=== PATIENT | male | born 1955 | race Caucasian/White ===

== ENCOUNTER → 2022-01-04 07:39 | Outpatient (CLI) | payer OTHER, SELFPAY ==
--- NOTE | 2022-01-04 | DI.US.S_ITS ---
PROCEDURE: US ABDOMEN LIMITED INDICATIONS: Right upper quadrant pain TECHNIQUE: Real-time focused scanning was performed of the abdomen, with image documentation. COMPARISON: None. FINDINGS: The liver demonstrates enlarged size. The liver demonstrates generalized moderately increased echogenicity. This decreases ultrasound sensitivity for detection of hepatic masses. Focal fatty sparing can be seen adjacent to the gallbladder. The gallbladder is prominent in size and is full of stones/gravel. The gallbladder wall is not thickened, measuring 3 mm or less. No specific pericholecystic fluid is seen. The sonographic Fuentes sign is negative. There is no biliary dilatation, the common bile duct measures 6 mm. No significant pancreatic abnormality is seen on these images. IMPRESSION: Abnormal gallbladder, with numerous stones/gravel. The gallbladder itself appears enlarged. No additional sonographic signs of cholecystitis are seen. - Please consider surgical consultation. No biliary dilatation. - Enlarged, fatty liver. Dictated by: Vinny Dhaliwal M.D. on 01/04/2022 at 12:46 Approved by: Vinny Dhaliwal M.D. on 01/04/2022 at 12:48
== END ==
PROVIDERS: PCP Internal Medicine; Referring Provider Internal Medicine; Visit Provider Internal Medicine
DX: R10.11 Right upper quadrant pain (principal); K80.80 Other cholelithiasis without obstruction; K76.0 Fatty (change of) liver, not elsewhere classified
CPT/HCPCS: 76705

== ENCOUNTER → 2022-05-01 11:32 | Outpatient (CLI) | payer OTHER, SELFPAY | PROVIDERS: Visit Provider Nurse Practitioner Family | DX: R30.0 Dysuria (principal) | CPT/HCPCS: 87086 ==

== ENCOUNTER 2022-05-01 12:04 | Emergency (ER) | payer OTHER, SELFPAY ==
[2022-05-01] VITALS (54 sets, daily range): BP systolic 104–169; BP diastolic 57–81; PULSE 64–79; RESP 18; O2SAT 92–99; BMI 29.5
--- NOTE | 2022-05-01 13:57 | DI.CT.S_ITS ---
PROCEDURE: CT ABDOMEN PELVIS W CON INDICATIONS: rectal abscess/prostatitis, urinary obstruction w/ rt flank TECHNIQUE: After the administration of IV contrast, axial sections were acquired from the lung bases to the pubic symphysis. Coronal and sagittal reformats were performed. For radiation dose reduction, the following was used: automated exposure control, adjustment of mA and/or kV according to patient size. COMPARISON: None. FINDINGS: Image quality: Excellent. Lung bases: Unremarkable. Heart: Coronary artery calcification. ABDOMEN: Liver: Hepatomegaly. Several punctate and short amorphous calcifications along the posterior caudal aspect of the liver. Moderate inflammatory haziness in the fat of the gallbladder fossa. Gallbladder: Gallbladder is surgically absent. Biliary ducts: Not well seen. Pancreas: Normal. Spleen: Normal size. Adrenal Glands: Mild bilateral symmetric thickening. No nodules. Kidneys and Ureters: Moderate bilateral and symmetric perinephric fat stranding. Symmetric enhancement. Two small cortical cystic lesions in the right kidney. No hydronephrosis or nephrolithiasis. No hydroureter or ureteral calcifications seen. Stomach and Bowel: There is wall thickening of much of the sigmoid colon along with moderately extensive diverticulosis. No acute pericolonic inflammatory changes. Diverticulosis of the descending colon. The small bowel is nonobstructed. The stomach is decompressed. The appendix is normal. Peritoneum: Generalized retroperitoneal inflammatory changes extending into the pelvis. No intraperitoneal inflammation, fluid, or free air. Ventral Wall: No hernia. Abdominal Nodes: Several small retrocrural lymph nodes. Shotty retroperitoneal adenopathy in the periaortic region. No mesenteric mass or adenopathy. Vessels: Aorta and inferior vena cava are normal in size. Moderate abdominal aortic atherosclerotic calcification. Heavy common iliac artery calcification, right worse than left. PELVIS: Pelvic Organs: The urinary bladder is decompressed containing a Mason catheter balloon. The wall is diffusely thickened. Prostate gland is moderately enlarged. No bladder calcifications. Pelvic Nodes: No enlarged lymph nodes. Miscellaneous: No inguinal hernias are seen. Bones: Multilevel disc and endplate degeneration in the low lumbar spine. No suspicious bone lesions. IMPRESSION: 1. Moderate generalized retroperitoneal inflammatory changes. Ascending urinary infection is not excluded. No evidence of obstructive uropathy. 2. Nonspecific haziness in the gallbladder fossa and blanche hepatis. Question recent cholecystectomy. There is probably reactive duodenitis. 3. Wall thickening of the sigmoid colon suggesting chronic, recurrent diverticulitis. No pericolonic inflammation to suggest acute diverticulitis. Dictated by: Carey Vogel M.D. on 05/01/2022 at 16:40 Approved by: Carey Vogel M.D. on 05/01/2022 at 16:49
[2022-05-01] MEDS: KETOROLAC 30 MG/ML VIAL 15 MG IV (14:02)
[2022-05-01] MEDS: LIDOCAINE 2% (GLYDO) 6 ML GEL TOP (14:02)
[2022-05-01] MEDS: LACTATED RINGERS 1,000 ML 1000 ML IV (14:03)
--- NOTE | 2022-05-01 14:03 | ED.MALEGU ---
HPI - Male Genitourinary <CHUCKY Osborn - Last Filed: 05/01/22 18:07> General Chief complaint: Urogenital-Male Stated complaint: unable to urinate x2 days Time Seen by Provider: 05/01/22 13:19 Source: patient Mode of arrival: Ambulatory History of Present Illness HPI Narrative: This is a 66-year-old male with history of BPH who has not seen a doctor or a urologist in a long time who presents emergency department complaining of the inability to void which started all of a sudden yesterday. He denies history of this in the same but states that he does have difficulty voiding. He states that he had rectal pain last night, and dysuria currently, states that he had diarrhea at 03:00 when he was trying to void. He states that he has cervical spinal stenosis and takes 10 mg of hydrocodone daily. He denies any blood in his stool, denies any vomiting, denies drinking any alcohol, states that he is a smoker, states that he is had diarrhea for 1 month and it has been negative via stool culture by his primary care provider who is Dr. Fallon. Patient has a history gallstones in December of 2021 with an ultrasound in our record, states he had a cholecystectomy just after that. Patient states that he drank Pedialyte this morning and kept it down. Related Data Previous Rx's Medication Instructions Recorded amoxicillin 875 mg-potassium 1 tab PO BID 10 days #20 tabs 05/01/22 clavulanate 125 mg tablet hydrocodone 10 mg-acetaminophen 1 tab PO BID PRN pain #14 tabs 05/01/22 300 mg tablet hydrocodone 5 mg-acetaminophen 325 1 tab PO BID #20 tabs 05/01/22 mg tablet tamsulosin 0.4 mg capsule (Flomax) 0.4 mg PO BEDTIME #20 caps 05/01/22 Allergies Allergy/AdvReac Type Severity Reaction Status Date / Time No Known Drug Allergies Allergy Unverified 05/01/22 11:26 Review of Systems <CHUCKY Osborn - Last Filed: 05/01/22 18:07> Review of Systems Narrative: Review of systems is negative for acute abnormalities unless otherwise noted in HPI Patient History <CHUCKY Osborn - Last Filed: 05/01/22 18:07> Social History Smoking Status: Current every day smoker Smoking Status: Current every day smoker Substance Use Type: marijuana Exam <CHUCKY Osborn - Last Filed: 05/01/22 18:07> Narrative Exam Narrative: Reviewed vitals signs and nursing notes. General: cooperative, comfortable, in no acute distress, well groomed HEENT: symmetrical facial expressions, moist mucous membranes Cardiovascular: regular rate and rhythm, no peripheral edema, warm extremities Respiratory: normal effort, able to speak in complete sentences, without wheezing, stridor, or abnormal breath sounds. No retractions or tachypnea. GI: abdomen soft, protuberant nontender to palpation, nondistended, without masses, rebound tenderness or exquisite tenderness with exam. Right flank tenderness to palpation /rectal exam: Hemoccult is negative, no significant tenderness with palpation of the prostate, no firm stool in the rectum, mucousy stool was present, MSK: moves all extremities, neurovascularly intact, no weakness, normal tone Skin: brisk capillary refill, without pallor or erythema Neuro: normal speech and cognition, A&O x3, ambulatory, clear speech Psych: mental status is grossly normal, congruent mood, normal affect, pleasant and cooperative Initial Vital Signs Initial Vital Signs: Vital Signs Pulse Rate 67 05/01/22 12:37 Respiratory Rate 18 05/01/22 12:37 Blood Pressure 148/69 H 05/01/22 12:37 Pulse Oximetry 98 05/01/22 12:37 Oxygen Delivery Method 05/01/22 12:37 <Ashwini Chi DO - Last Filed: 05/01/22 19:37> Initial Vital Signs Initial Vital Signs: Vital Signs Pulse Rate 67 05/01/22 12:37 Respiratory Rate 18 05/01/22 12:37 Blood Pressure 148/69 H 05/01/22 12:37 Pulse Oximetry 98 05/01/22 12:37 Oxygen Delivery Method 05/01/22 12:37 Course <CHUCKY Osborn - Last Filed: 05/01/22 18:07> Orders Ordered: ED Orders 05/01/22 13:57 CT abdomen pelvis w con Stat 05/01/22 14:14 Urine Microscopic Stat 05/01/22 14:37 CBC Auto Diff [Complete Blood Count AUTO DIFF] Stat CMP [Comprehensive Metabolic Panel] Stat CRP [C-Reactive Protein Quant] Stat Lactate (Lactic Acid) Stat Lipase Stat Magnesium Stat 05/01/22 15:40 A1C [Hemoglobin A1C% w Est Avg Glu] Stat Discontinued Medications Hydromorphone HCl (Hydromorphone 0.5 Mg Inj) 0.5 mg IV NOW ONE Stop: 05/01/22 14:05 Last Admin: 05/01/22 14:48 Dose: 0.5 mg Documented By: RB Hydromorphone HCl (Hydromorphone 0.5 Mg Inj) 0.5 mg IV NOW ONE Stop: 05/01/22 16:04 Last Admin: 05/01/22 16:28 Dose: 0.5 mg Documented By: RB Lactated Ringer's (Lactated Ringers) 1,000 mls @ 1,000 mls/hr IV BOLUS ONE Stop: 05/01/22 14:56 Last Infusion: 05/01/22 15:39 Dose: 0 mls/hr Documented By: Infusion: 05/01/22 15:27 Dose: 1,000 mls/hr Documented By: Infusion: 05/01/22 15:15 Dose: 0 mls/hr Documented By: Infusion: 05/01/22 14:51 Dose: 1,000 mls/hr Documented By: Infusion: 05/01/22 14:03 Dose: 0 mls/hr Documented By: Admin: 05/01/22 14:03 Dose: 1,000 mls/hr Documented By: BS Ceftriaxone Sodium 2,000 mg/ (Sodium Chloride) 100 mls @ 200 mls/hr IV NOW ONE Stop: 05/01/22 15:29 Last Infusion: 05/01/22 17:17 Dose: 0 mls/hr Documented By: Infusion: 05/01/22 16:20 Dose: 200 mls/hr Documented By: Infusion: 05/01/22 16:14 Dose: 0 mls/hr Documented By: Admin: 05/01/22 16:14 Dose: 200 mls/hr Documented By: KAMILA Metronidazole (Flagyl) 500 mg in 100 mls @ 100 mls/hr IV NOW ONE Stop: 05/01/22 16:27 Last Infusion: 05/01/22 19:00 Dose: 0 mls/hr Documented By: Admin: 05/01/22 17:17 Dose: 100 mls/hr Documented By: BS Ketorolac Tromethamine (Ketorolac 30 Mg/Ml Vial) 15 mg IV NOW ONE Stop: 05/01/22 13:57 Last Admin: 05/01/22 14:02 Dose: 15 mg Documented By: BS Lidocaine HCl (Lidocaine 2% (Glydo) 6 Ml Gel) 6 ml TOP NOW ONE Stop: 05/01/22 13:57 Last Admin: 05/01/22 14:02 Dose: 6 ml Documented By: BS Consultations Consultation #1: Consultation with Dr. Vincent who recommends discharge with outpatient antibiotics, close follow-up with Dr. Fallon, strict return precautions, follow-up with urology for urinary retention and okay to start tamsulosin Vital Signs Vital signs: Vital Signs - 8 hr 05/01/22 12:37 05/01/22 14:48 05/01/22 14:48 Pulse Rate 67 65 Respiratory Rate 18 Blood Pressure 148/69 H 160/68 H Pulse Oximetry 98 98 Oxygen Delivery Method Room Air 05/01/22 14:50 05/01/22 14:50 05/01/22 14:54 Pulse Rate 67 67 Respiratory Rate Blood Pressure 151/71 H Pulse Oximetry 98 98 Oxygen Delivery Method 05/01/22 14:55 05/01/22 15:00 05/01/22 15:00 Pulse Rate 64 Respiratory Rate Blood Pressure 142/64 H 139/66 Pulse Oximetry 98 Oxygen Delivery Method Room Air 05/01/22 15:05 05/01/22 15:05 05/01/22 15:10 Pulse Rate 66 Respiratory Rate Blood Pressure 148/66 H 142/69 H Pulse Oximetry 96 Oxygen Delivery Method 05/01/22 15:10 05/01/22 15:26 05/01/22 15:26 Pulse Rate 64 67 Respiratory Rate Blood Pressure 145/67 H Pulse Oximetry 96 97 Oxygen Delivery Method 05/01/22 15:30 05/01/22 15:30 05/01/22 15:35 Pulse Rate 67 67 Respiratory Rate Blood Pressure 149/73 H Pulse Oximetry 96 96 Oxygen Delivery Method 05/01/22 15:35 05/01/22 15:40 05/01/22 15:40 Pulse Rate 66 Respiratory Rate Blood Pressure 146/70 H 144/71 H Pulse Oximetry 98 Oxygen Delivery Method 05/01/22 15:45 05/01/22 15:45 05/01/22 15:50 Pulse Rate 67 Respiratory Rate Blood Pressure 147/70 H 154/70 H Pulse Oximetry 95 Oxygen Delivery Method 05/01/22 15:50 05/01/22 15:55 05/01/22 15:55 Pulse Rate 66 66 Respiratory Rate Blood Pressure 157/73 H Pulse Oximetry 96 97 Oxygen Delivery Method 05/01/22 16:00 05/01/22 16:00 05/01/22 16:05 Pulse Rate 66 68 Respiratory Rate Blood Pressure 150/70 H Pulse Oximetry 97 96 Oxygen Delivery Method 05/01/22 16:05 05/01/22 16:10 05/01/22 16:10 Pulse Rate 73 Respiratory Rate Blood Pressure 166/74 H 149/68 H Pulse Oximetry 98 Oxygen Delivery Method 05/01/22 16:15 05/01/22 16:15 05/01/22 16:20 Pulse Rate 70 68 Respiratory Rate Blood Pressure 153/72 H Pulse Oximetry 98 98 Oxygen Delivery Method 05/01/22 16:20 05/01/22 16:26 05/01/22 16:26 Pulse Rate 71 Respiratory Rate Blood Pressure 153/72 H 145/81 H Pulse Oximetry 98 Oxygen Delivery Method 05/01/22 16:30 05/01/22 16:31 05/01/22 16:31 Pulse Rate 70 72 Respiratory Rate Blood Pressure 137/64 Pulse Oximetry 98 97 Oxygen Delivery Method 05/01/22 16:35 05/01/22 16:35 05/01/22 16:40 Pulse Rate 68 69 Respiratory Rate Blood Pressure 163/74 H Pulse Oximetry 97 96 Oxygen Delivery Method 05/01/22 16:40 05/01/22 16:45 05/01/22 16:45 Pulse Rate 68 Respiratory Rate Blood Pressure 151/74 H 125/66 Pulse Oximetry 96 Oxygen Delivery Method 05/01/22 16:50 05/01/22 16:50 05/01/22 16:55 Pulse Rate 70 71 Respiratory Rate Blood Pressure 155/73 H Pulse Oximetry 95 95 Oxygen Delivery Method 05/01/22 16:55 05/01/22 17:00 05/01/22 17:01 Pulse Rate 70 70 Respiratory Rate Blood Pressure 149/72 H Pulse Oximetry 97 97 Oxygen Delivery Method 05/01/22 17:01 05/01/22 17:05 05/01/22 17:05 Pulse Rate 69 Respiratory Rate Blood Pressure 163/71 H 168/77 H Pulse Oximetry 97 Oxygen Delivery Method 05/01/22 17:10 05/01/22 17:10 05/01/22 17:15 Pulse Rate 69 69 Respiratory Rate Blood Pressure 153/74 H Pulse Oximetry 98 98 Oxygen Delivery Method 05/01/22 17:15 05/01/22 17:20 05/01/22 17:20 Pulse Rate 75 Respiratory Rate Blood Pressure 157/77 H 163/74 H Pulse Oximetry 97 Oxygen Delivery Method 05/01/22 17:25 05/01/22 17:25 05/01/22 17:30 Pulse Rate 67 70 Respiratory Rate Blood Pressure 153/70 H Pulse Oximetry 98 95 Oxygen Delivery Method 05/01/22 17:31 05/01/22 17:31 05/01/22 17:35 Pulse Rate 70 Respiratory Rate Blood Pressure 134/59 L 154/75 H Pulse Oximetry 96 Oxygen Delivery Method 05/01/22 17:35 05/01/22 17:40 05/01/22 17:40 Pulse Rate 68 71 Respiratory Rate Blood Pressure 157/71 H Pulse Oximetry 96 97 Oxygen Delivery Method 05/01/22 17:46 05/01/22 17:46 05/01/22 17:50 Pulse Rate 73 Respiratory Rate Blood Pressure 148/74 H 138/64 Pulse Oximetry 92 Oxygen Delivery Method 05/01/22 17:50 05/01/22 17:55 05/01/22 17:55 Pulse Rate 71 68 Respiratory Rate Blood Pressure 129/57 L Pulse Oximetry 98 Oxygen Delivery Method 05/01/22 18:00 05/01/22 18:01 05/01/22 18:01 Pulse Rate 77 73 Respiratory Rate Blood Pressure 128/74 Pulse Oximetry 98 Oxygen Delivery Method 05/01/22 18:05 05/01/22 18:05 05/01/22 18:11 Pulse Rate 68 74 Respiratory Rate Blood Pressure 168/74 H Pulse Oximetry 97 97 Oxygen Delivery Method 05/01/22 18:11 05/01/22 18:15 05/01/22 18:15 Pulse Rate 71 Respiratory Rate Blood Pressure 104/69 120/73 Pulse Oximetry 97 Oxygen Delivery Method 05/01/22 18:20 05/01/22 18:20 05/01/22 18:25 Pulse Rate 71 Respiratory Rate Blood Pressure 169/74 H 162/70 H Pulse Oximetry 97 Oxygen Delivery Method 05/01/22 18:25 05/01/22 18:30 05/01/22 18:30 Pulse Rate 72 79 Respiratory Rate Blood Pressure 146/66 H Pulse Oximetry 99 98 Oxygen Delivery Method 05/01/22 18:35 05/01/22 18:35 05/01/22 18:40 Pulse Rate 72 72 Respiratory Rate Blood Pressure 150/74 H Pulse Oximetry 97 95 Oxygen Delivery Method 05/01/22 18:40 05/01/22 18:45 05/01/22 18:45 Pulse Rate 71 Respiratory Rate Blood Pressure 161/72 H 147/73 H Pulse Oximetry 95 Oxygen Delivery Method 05/01/22 18:50 05/01/22 18:50 Pulse Rate 71 Respiratory Rate Blood Pressure 149/73 H Pulse Oximetry 95 Oxygen Delivery Method <Ashwini Chi, DO - Last Filed: 05/01/22 19:37> Orders Ordered: ED Orders 05/01/22 13:57 CT abdomen pelvis w con Stat 05/01/22 14:14 Urine Microscopic Stat 05/01/22 14:37 CBC Auto Diff [Complete Blood Count AUTO DIFF] Stat CMP [Comprehensive Metabolic Panel] Stat CRP [C-Reactive Protein Quant] Stat Lactate (Lactic Acid) Stat Lipase Stat Magnesium Stat 05/01/22 15:40 A1C [Hemoglobin A1C% w Est Avg Glu] Stat Discontinued Medications Hydromorphone HCl (Hydromorphone 0.5 Mg Inj) 0.5 mg IV NOW ONE Stop: 05/01/22 14:05 Last Admin: 05/01/22 14:48 Dose: 0.5 mg Documented By: RB Hydromorphone HCl (Hydromorphone 0.5 Mg Inj) 0.5 mg IV NOW ONE Stop: 05/01/22 16:04 Last Admin: 05/01/22 16:28 Dose: 0.5 mg Documented By: RB Lactated Ringer's (Lactated Ringers) 1,000 mls @ 1,000 mls/hr IV BOLUS ONE Stop: 05/01/22 14:56 Last Infusion: 05/01/22 15:39 Dose: 0 mls/hr Documented By: Infusion: 05/01/22 15:27 Dose: 1,000 mls/hr Documented By: Infusion: 05/01/22 15:15 Dose: 0 mls/hr Documented By: Infusion: 05/01/22 14:51 Dose: 1,000 mls/hr Documented By: Infusion: 05/01/22 14:03 Dose: 0 mls/hr Documented By: Admin: 05/01/22 14:03 Dose: 1,000 mls/hr Documented By: BS Ceftriaxone Sodium 2,000 mg/ (Sodium Chloride) 100 mls @ 200 mls/hr IV NOW ONE Stop: 05/01/22 15:29 Last Infusion: 05/01/22 17:17 Dose: 0 mls/hr Documented By: Infusion: 05/01/22 16:20 Dose: 200 mls/hr Documented By: Infusion: 05/01/22 16:14 Dose: 0 mls/hr Documented By: Admin: 05/01/22 16:14 Dose: 200 mls/hr Documented By: KAMILA Metronidazole (Flagyl) 500 mg in 100 mls @ 100 mls/hr IV NOW ONE Stop: 05/01/22 16:27 Last Infusion: 05/01/22 19:00 Dose: 0 mls/hr Documented By: Admin: 05/01/22 17:17 Dose: 100 mls/hr Documented By: KAMILA Ketorolac Tromethamine (Ketorolac 30 Mg/Ml Vial) 15 mg IV NOW ONE Stop: 05/01/22 13:57 Last Admin: 05/01/22 14:02 Dose: 15 mg Documented By: KAMILA Lidocaine HCl (Lidocaine 2% (Glydo) 6 Ml Gel) 6 ml TOP NOW ONE Stop: 05/01/22 13:57 Last Admin: 05/01/22 14:02 Dose: 6 ml Documented By: KAMILA Vital Signs Vital signs: Vital Signs - 8 hr 05/01/22 12:37 05/01/22 14:48 05/01/22 14:48 Pulse Rate 67 65 Respiratory Rate 18 Blood Pressure 148/69 H 160/68 H Pulse Oximetry 98 98 Oxygen Delivery Method Room Air 05/01/22 14:50 05/01/22 14:50 05/01/22 14:54 Pulse Rate 67 67 Respiratory Rate Blood Pressure 151/71 H Pulse Oximetry 98 98 Oxygen Delivery Method 05/01/22 14:55 05/01/22 15:00 05/01/22 15:00 Pulse Rate 64 Respiratory Rate Blood Pressure 142/64 H 139/66 Pulse Oximetry 98 Oxygen Delivery Method Room Air 05/01/22 15:05 05/01/22 15:05 05/01/22 15:10 Pulse Rate 66 Respiratory Rate Blood Pressure 148/66 H 142/69 H Pulse Oximetry 96 Oxygen Delivery Method 05/01/22 15:10 05/01/22 15:26 05/01/22 15:26 Pulse Rate 64 67 Respiratory Rate Blood Pressure 145/67 H Pulse Oximetry 96 97 Oxygen Delivery Method 05/01/22 15:30 05/01/22 15:30 05/01/22 15:35 Pulse Rate 67 67 Respiratory Rate Blood Pressure 149/73 H Pulse Oximetry 96 96 Oxygen Delivery Method 05/01/22 15:35 05/01/22 15:40 05/01/22 15:40 Pulse Rate 66 Respiratory Rate Blood Pressure 146/70 H 144/71 H Pulse Oximetry 98 Oxygen Delivery Method 05/01/22 15:45 05/01/22 15:45 05/01/22 15:50 Pulse Rate 67 Respiratory Rate Blood Pressure 147/70 H 154/70 H Pulse Oximetry 95 Oxygen Delivery Method 05/01/22 15:50 05/01/22 15:55 05/01/22 15:55 Pulse Rate 66 66 Respiratory Rate Blood Pressure 157/73 H Pulse Oximetry 96 97 Oxygen Delivery Method 05/01/22 16:00 05/01/22 16:00 05/01/22 16:05 Pulse Rate 66 68 Respiratory Rate Blood Pressure 150/70 H Pulse Oximetry 97 96 Oxygen Delivery Method 05/01/22 16:05 05/01/22 16:10 05/01/22 16:10 Pulse Rate 73 Respiratory Rate Blood Pressure 166/74 H 149/68 H Pulse Oximetry 98 Oxygen Delivery Method 05/01/22 16:15 05/01/22 16:15 05/01/22 16:20 Pulse Rate 70 68 Respiratory Rate Blood Pressure 153/72 H Pulse Oximetry 98 98 Oxygen Delivery Method 05/01/22 16:20 05/01/22 16:26 05/01/22 16:26 Pulse Rate 71 Respiratory Rate Blood Pressure 153/72 H 145/81 H Pulse Oximetry 98 Oxygen Delivery Method 05/01/22 16:30 05/01/22 16:31 05/01/22 16:31 Pulse Rate 70 72 Respiratory Rate Blood Pressure 137/64 Pulse Oximetry 98 97 Oxygen Delivery Method 05/01/22 16:35 05/01/22 16:35 05/01/22 16:40 Pulse Rate 68 69 Respiratory Rate Blood Pressure 163/74 H Pulse Oximetry 97 96 Oxygen Delivery Method 05/01/22 16:40 05/01/22 16:45 05/01/22 16:45 Pulse Rate 68 Respiratory Rate Blood Pressure 151/74 H 125/66 Pulse Oximetry 96 Oxygen Delivery Method 05/01/22 16:50 05/01/22 16:50 05/01/22 16:55 Pulse Rate 70 71 Respiratory Rate Blood Pressure 155/73 H Pulse Oximetry 95 95 Oxygen Delivery Method 05/01/22 16:55 05/01/22 17:00 05/01/22 17:01 Pulse Rate 70 70 Respiratory Rate Blood Pressure 149/72 H Pulse Oximetry 97 97 Oxygen Delivery Method 05/01/22 17:01 05/01/22 17:05 05/01/22 17:05 Pulse Rate 69 Respiratory Rate Blood Pressure 163/71 H 168/77 H Pulse Oximetry 97 Oxygen Delivery Method 05/01/22 17:10 05/01/22 17:10 05/01/22 17:15 Pulse Rate 69 69 Respiratory Rate Blood Pressure 153/74 H Pulse Oximetry 98 98 Oxygen Delivery Method 05/01/22 17:15 05/01/22 17:20 05/01/22 17:20 Pulse Rate 75 Respiratory Rate Blood Pressure 157/77 H 163/74 H Pulse Oximetry 97 Oxygen Delivery Method 05/01/22 17:25 05/01/22 17:25 05/01/22 17:30 Pulse Rate 67 70 Respiratory Rate Blood Pressure 153/70 H Pulse Oximetry 98 95 Oxygen Delivery Method 05/01/22 17:31 05/01/22 17:31 05/01/22 17:35 Pulse Rate 70 Respiratory Rate Blood Pressure 134/59 L 154/75 H Pulse Oximetry 96 Oxygen Delivery Method 05/01/22 17:35 05/01/22 17:40 05/01/22 17:40 Pulse Rate 68 71 Respiratory Rate Blood Pressure 157/71 H Pulse Oximetry 96 97 Oxygen Delivery Method 05/01/22 17:46 05/01/22 17:46 05/01/22 17:50 Pulse Rate 73 Respiratory Rate Blood Pressure 148/74 H 138/64 Pulse Oximetry 92 Oxygen Delivery Method 05/01/22 17:50 05/01/22 17:55 05/01/22 17:55 Pulse Rate 71 68 Respiratory Rate Blood Pressure 129/57 L Pulse Oximetry 98 Oxygen Delivery Method 05/01/22 18:00 05/01/22 18:01 05/01/22 18:01 Pulse Rate 77 73 Respiratory Rate Blood Pressure 128/74 Pulse Oximetry 98 Oxygen Delivery Method 05/01/22 18:05 05/01/22 18:05 05/01/22 18:11 Pulse Rate 68 74 Respiratory Rate Blood Pressure 168/74 H Pulse Oximetry 97 97 Oxygen Delivery Method 05/01/22 18:11 05/01/22 18:15 05/01/22 18:15 Pulse Rate 71 Respiratory Rate Blood Pressure 104/69 120/73 Pulse Oximetry 97 Oxygen Delivery Method 05/01/22 18:20 05/01/22 18:20 05/01/22 18:25 Pulse Rate 71 Respiratory Rate Blood Pressure 169/74 H 162/70 H Pulse Oximetry 97 Oxygen Delivery Method 05/01/22 18:25 05/01/22 18:30 05/01/22 18:30 Pulse Rate 72 79 Respiratory Rate Blood Pressure 146/66 H Pulse Oximetry 99 98 Oxygen Delivery Method 05/01/22 18:35 05/01/22 18:35 05/01/22 18:40 Pulse Rate 72 72 Respiratory Rate Blood Pressure 150/74 H Pulse Oximetry 97 95 Oxygen Delivery Method 05/01/22 18:40 05/01/22 18:45 05/01/22 18:45 Pulse Rate 71 Respiratory Rate Blood Pressure 161/72 H 147/73 H Pulse Oximetry 95 Oxygen Delivery Method 05/01/22 18:50 05/01/22 18:50 Pulse Rate 71 Respiratory Rate Blood Pressure 149/73 H Pulse Oximetry 95 Oxygen Delivery Method MDM - Male Genitourinary <CHUCKY Osborn - Last Filed: 05/01/22 18:07> Lab Data Result diagrams: 05/01/22 14:37 05/01/22 14:37 Labs: Lab Results 05/01/22 05/01/22 05/01/22 Range/Units 14:14 14:37 14:37 WBC 12.0 H (4.5-11.0) X10^3/uL RBC 3.42 L (4.5-5.9) X10^6/uL Hgb 10.3 L (13.5-17.5) g/dL Hct 29.4 L (41-53) % MCV 85.9 (80-100) fL MCH 30.2 (26-34) PG MCHC 35.1 (30-36) % RDW 13.1 (11.6-14.8) % Plt Count 166 (150-400) X10^3/uL Neut % (Auto) 80.7 H (50-75) % Lymph % (Auto) 8.4 L (25-40) % [place] % (Auto) 9.9 (3-14) % Eos % (Auto) 0.7 L (2-4) % Baso % (Auto) 0.3 (0-2) % Neut # (Auto) 9700 H (1608-5902) /uL Lymph # (Auto) 1000 L (2334-3214) /uL [place] # (Auto) 1200 H (0-900) /uL Eos # (Auto) 100 (0-450) /uL Baso # (Auto) 0 (0-100) /uL Sodium 130 L (137-145) mmol/L Potassium 4.2 (3.4-5.1) mmol/L Chloride 95 L (98-107) mmol/L Carbon Dioxide 24 (22-32) mmol/L BUN 27 H (9-20) mg/dL Creatinine 1.36 H (0.66-1.25) mg/dL Estimated GFR 57 L (>60) mL/min BUN/Creatinine Ratio 19.9 (6-22) Glucose 134 H (80-110) mg/dL Hemoglobin A1c (4.0-6.0) % Lactate (0.7-2.1) mmol/L Calcium 8.6 (8.4-10.2) mg/dL Magnesium (1.6-2.3) mg/dL Total Bilirubin 0.3 (0.2-1.3) mg/dL AST 20 (17-59) IU/L ALT 15 (<50) IU/L Alkaline Phosphatase 92 (38-126) U/L C-Reactive Protein (<1.0) mg/dL Total Protein 7.3 (6.3-8.2) g/dL Albumin 3.9 (3.5-5.0) g/dL Globulin 3.4 (1.7-4.1) g/dL Albumin/Globulin Ratio 1.1 (1.0-2.8) Lipase (23-300) U/L Urine RBC None seen (0-5/HPF) Urine WBC None seen (0-5/HPF) Urine Bacteria None seen (None) Ur Culture Indicated? Cult not indicated Micro UA Comment Microscopic normal 05/01/22 05/01/22 05/01/22 Range/Units 14:37 14:37 15:40 WBC (4.5-11.0) X10^3/uL RBC (4.5-5.9) X10^6/uL Hgb (13.5-17.5) g/dL Hct (41-53) % MCV (80-100) fL MCH (26-34) PG MCHC (30-36) % RDW (11.6-14.8) % Plt Count (150-400) X10^3/uL Neut % (Auto) (50-75) % Lymph % (Auto) (25-40) % [place] % (Auto) (3-14) % Eos % (Auto) (2-4) % Baso % (Auto) (0-2) % Neut # (Auto) (8522-1854) /uL Lymph # (Auto) (5494-9301) /uL [place] # (Auto) (0-900) /uL Eos # (Auto) (0-450) /uL Baso # (Auto) (0-100) /uL Sodium (137-145) mmol/L Potassium (3.4-5.1) mmol/L Chloride (98-107) mmol/L Carbon Dioxide (22-32) mmol/L BUN (9-20) mg/dL Creatinine (0.66-1.25) mg/dL Estimated GFR (>60) mL/min BUN/Creatinine Ratio (6-22) Glucose (80-110) mg/dL Hemoglobin A1c 5.7 (4.0-6.0) % Lactate 1.1 (0.7-2.1) mmol/L Calcium (8.4-10.2) mg/dL Magnesium 2.2 (1.6-2.3) mg/dL Total Bilirubin (0.2-1.3) mg/dL AST (17-59) IU/L ALT (<50) IU/L Alkaline Phosphatase (38-126) U/L C-Reactive Protein 16.5 H (<1.0) mg/dL Total Protein (6.3-8.2) g/dL Albumin (3.5-5.0) g/dL Globulin (1.7-4.1) g/dL Albumin/Globulin Ratio (1.0-2.8) Lipase 54 (23-300) U/L Urine RBC (0-5/HPF) Urine WBC (0-5/HPF) Urine Bacteria (None) Ur Culture Indicated? Micro UA Comment Imaging Data CT scan - abdomen/pelvis: Radiologist's Impression: PROCEDURE:? CT ABDOMEN PELVIS W CON ? INDICATIONS:? rectal abscess/prostatitis, urinary obstruction w/ rt flank ? TECHNIQUE:? After the administration of IV contrast, axial sections were acquired from the lung bases to the pubic symphysis.? Coronal and sagittal reformats were performed.? For radiation dose reduction, the following was used:? automated exposure control, adjustment of mA and/or kV according to patient size. ? COMPARISON:? None. ? FINDINGS:? Image quality:? Excellent.? ? Lung bases:? Unremarkable.? ? Heart:? Coronary artery calcification. ? ? ABDOMEN: Liver:? Hepatomegaly.? Several punctate and short amorphous calcifications along the posterior caudal aspect of the liver.? Moderate inflammatory haziness in the fat of the gallbladder fossa. Gallbladder:? Gallbladder is surgically absent. Biliary ducts:? Not well seen. Pancreas:? Normal. Spleen:? Normal size. Adrenal Glands:? Mild bilateral symmetric thickening.? No nodules. Kidneys and Ureters:? Moderate bilateral and symmetric perinephric fat stranding.? Symmetric enhancement.? Two small cortical cystic lesions in the right kidney.? No hydronephrosis or nephrolithiasis.? No hydroureter or ureteral calcifications seen. ? Stomach and Bowel:? There is wall thickening of much of the sigmoid colon along with moderately extensive diverticulosis.? No acute pericolonic inflammatory changes.? Diverticulosis of the descending colon.? The small bowel is nonobstructed.? The stomach is decompressed.? The appendix is normal. Peritoneum:? Generalized retroperitoneal inflammatory changes extending into the pelvis.? No intraperitoneal inflammation, fluid, or free air. ? Ventral Wall: ? No hernia.? Abdominal Nodes:? Several small retrocrural lymph nodes.? Shotty retroperitoneal adenopathy in the periaortic region.? No mesenteric mass or adenopathy. Vessels:? Aorta and inferior vena cava are normal in size.? Moderate abdominal aortic atherosclerotic calcification.? Heavy common iliac artery calcification, right worse than left.? ? PELVIS: Pelvic Organs:? The urinary bladder is decompressed containing a Mason catheter balloon.? The wall is diffusely thickened.? Prostate gland is moderately enlarged.? No bladder calcifications. Pelvic Nodes: No enlarged lymph nodes.? Miscellaneous: No inguinal hernias are seen. ? ? ? Bones:? Multilevel disc and endplate degeneration in the low lumbar spine.? No suspicious bone lesions. ? ? IMPRESSION:? ? ? 1. Moderate generalized retroperitoneal inflammatory changes.? Ascending urinary infection is not excluded.? No evidence of obstructive uropathy. ? 2. Nonspecific haziness in the gallbladder fossa and blanche hepatis.? Question recent cholecystectomy.? There is probably reactive duodenitis. ? 3. Wall thickening of the sigmoid colon suggesting chronic, recurrent diverticulitis.? No pericolonic inflammation to suggest acute diverticulitis.? ? ? Dictated by: Carey Vogel M.D. on 05/01/2022 at 16:40 ? ? Approved by: Carey Vogel M.D. on 05/01/2022 at 16:49 ? [facility] [facility] Narrative Medical decision making narrative: This is a 66-year-old gentleman who presents to the emergency department with complaint of diarrhea for 1 month, complains of right-sided flank pain, history of cervical spinal stenosis and takes hydrocodone, denies any acute change but endorses difficulty and inability to void at 03:00 this morning, states he had diarrhea instead. Patient had a stool culture which did not have any growth per patient's report. No lab work was available to compare on his exam today. Patient has a mild leukocytosis of 12.0, no abdominal tenderness to palpation, no masses, history of cholecystectomy in December of 2021. He has anemia, his hemoglobin is 10.3 and hematocrit of 29.4. No known source of bleeding, patient does not drink alcohol he reports, hemoccult was negative. He has a mild left shift, sodium of 130 today, chloride of 95, BUN 27, creatinine is elevated at 1.36, GFR is 57, magnesium 2.2, CRP is 16.5, lipase of 54. Patient had hematuria on urine dip and microscopy did not show blood, bacteria, RBCs with a normal microscopy. CT of his abdomen and pelvis was obtained after lab work was obtained. He was given 1 L of lactated Ringer's, Toradol, hydromorphone for his pain which he states helped him feel much better. Consultation with Dr. Vincent regarding dispo. Reviewed his labs, history, CT image and patient and hospitalist agree that patient should likely do well on antibiotics and discharge home. He has vital signs within normal ranges, his urinary retention was resolved with a Mason catheter. Will start on Augmentin b.i.d. for the next 10 days and treat for colitis and encourage patient to follow-up with his primary care provider Dr. Fallon in the next week for a recheck. CT abdomen and pelvis shows moderate generalized retroperitoneal inflammatory changes. Moderate generalized retroperitoneal inflammatory changes.? Ascending urinary infection is not excluded.? No evidence of obstructive uropathy. Nonspecific haziness in the gallbladder fossa and blanche hepatis.? Question recent cholecystectomy.? There is probably reactive duodenitis. Wall thickening of the sigmoid colon suggesting chronic, recurrent diverticulitis.? No pericolonic inflammation to suggest acute diverticulitis.? Patient with stable vital signs, without hypoxia, patient wishes to go home and follow-up with providers as an outpatient. Patient will be discharged home on Augmentin b.i.d. for the next 10 days, tamsulosin with a Mason catheter and leg bag for management. Encouraged to follow-up with Dr. Ralph and/or Dr. Alberts in 1-2 weeks. Patient will benefit from follow-up from [facility] with a colonoscopy following resolution of his colitis. Patient is appropriate and amenable to discharge home. Vital signs are stable on repeat examination is unremarkable. Patient has been informed of results. Patient has been given strict return to ER precautions for any new or worsening symptoms. Patient understands to follow up closely with outpatient providers as instructed. Patient understands plan and agrees to discharge home. All questions and concerns answered at this time. Differential includes peritonitis procttosigmoiditis, malignancy, diverticulitis, chronic diverticulitis. <Ashwini Chi, - Last Filed: 05/01/22 19:37> Lab Data Labs: Lab Results 05/01/22 05/01/22 05/01/22 Range/Units 14:14 14:37 14:37 WBC 12.0 H (4.5-11.0) X10^3/uL RBC 3.42 L (4.5-5.9) X10^6/uL Hgb 10.3 L (13.5-17.5) g/dL Hct 29.4 L (41-53) % MCV 85.9 (80-100) fL MCH 30.2 (26-34) PG MCHC 35.1 (30-36) % RDW 13.1 (11.6-14.8) % Plt Count 166 (150-400) X10^3/uL Neut % (Auto) 80.7 H (50-75) % Lymph % (Auto) 8.4 L (25-40) % [place] % (Auto) 9.9 (3-14) % Eos % (Auto) 0.7 L (2-4) % Baso % (Auto) 0.3 (0-2) % Neut # (Auto) 9700 H (5994-1073) /uL Lymph # (Auto) 1000 L (2003-1762) /uL [place] # (Auto) 1200 H (0-900) /uL Eos # (Auto) 100 (0-450) /uL Baso # (Auto) 0 (0-100) /uL Sodium 130 L (137-145) mmol/L Potassium 4.2 (3.4-5.1) mmol/L Chloride 95 L (98-107) mmol/L Carbon Dioxide 24 (22-32) mmol/L BUN 27 H (9-20) mg/dL Creatinine 1.36 H (0.66-1.25) mg/dL Estimated GFR 57 L (>60) mL/min BUN/Creatinine Ratio 19.9 (6-22) Glucose 134 H (80-110) mg/dL Hemoglobin A1c (4.0-6.0) % Lactate (0.7-2.1) mmol/L Calcium 8.6 (8.4-10.2) mg/dL Magnesium (1.6-2.3) mg/dL Total Bilirubin 0.3 (0.2-1.3) mg/dL AST 20 (17-59) IU/L ALT 15 (<50) IU/L Alkaline Phosphatase 92 (38-126) U/L C-Reactive Protein (<1.0) mg/dL Total Protein 7.3 (6.3-8.2) g/dL Albumin 3.9 (3.5-5.0) g/dL Globulin 3.4 (1.7-4.1) g/dL Albumin/Globulin Ratio 1.1 (1.0-2.8) Lipase (23-300) U/L Urine RBC None seen (0-5/HPF) Urine WBC None seen (0-5/HPF) Urine Bacteria None seen (None) Ur Culture Indicated? Cult not indicated Micro UA Comment Microscopic normal 05/01/22 05/01/22 05/01/22 Range/Units 14:37 14:37 15:40 WBC (4.5-11.0) X10^3/uL RBC (4.5-5.9) X10^6/uL Hgb (13.5-17.5) g/dL Hct (41-53) % MCV (80-100) fL MCH (26-34) PG MCHC (30-36) % RDW (11.6-14.8) % Plt Count (150-400) X10^3/uL Neut % (Auto) (50-75) % Lymph % (Auto) (25-40) % [place] % (Auto) (3-14) % Eos % (Auto) (2-4) % Baso % (Auto) (0-2) % Neut # (Auto) (5722-1104) /uL Lymph # (Auto) (1657-4860) /uL [place] # (Auto) (0-900) /uL Eos # (Auto) (0-450) /uL Baso # (Auto) (0-100) /uL Sodium (137-145) mmol/L Potassium (3.4-5.1) mmol/L Chloride (98-107) mmol/L Carbon Dioxide (22-32) mmol/L BUN (9-20) mg/dL Creatinine (0.66-1.25) mg/dL Estimated GFR (>60) mL/min BUN/Creatinine Ratio (6-22) Glucose (80-110) mg/dL Hemoglobin A1c 5.7 (4.0-6.0) % Lactate 1.1 (0.7-2.1) mmol/L Calcium (8.4-10.2) mg/dL Magnesium 2.2 (1.6-2.3) mg/dL Total Bilirubin (0.2-1.3) mg/dL AST (17-59) IU/L ALT (<50) IU/L Alkaline Phosphatase (38-126) U/L C-Reactive Protein 16.5 H (<1.0) mg/dL Total Protein (6.3-8.2) g/dL Albumin (3.5-5.0) g/dL Globulin (1.7-4.1) g/dL Albumin/Globulin Ratio (1.0-2.8) Lipase 54 (23-300) U/L Urine RBC (0-5/HPF) Urine WBC (0-5/HPF) Urine Bacteria (None) Ur Culture Indicated? Micro UA Comment Discharge Plan Departure Patient Disposition: Home Clinical Impression: Colitis, Acute urinary retention, Creatinine elevation, Acute hyponatremia, History of cholecystectomy Instructions: How to Care for Your Mason Catheter -- Male, DI for Urinary Retention in Men, DI for Colitis Activity Restrictions/Additional Instructions: *You have been diagnosed with colitis with inflammation of your colon from where your gallbladder was removed all the way to your sigmoid colon. Your prostate is inflamed, hence the urinary obstruction. Please leave this Mason catheter in for the next 1-2 weeks at minimum until you follow-up with urology. Please call Dr. Fallon and schedule a follow-up appointment in the next week, you will need to stay on this antibiotic and should get better on it. You should get better in the next few days and may not need any significant intervention. Please stay hydrated, this is a job for you to stay on top of at home. If you are able to leave a stool sample, please do, otherwise please continue on the antibiotics and come back if you have worsening of your symptoms. It is reassuring that your lab work looks the way that it does, please try and eat foods that you tolerate, your sodium is low today, please continue with Pedialyte or other electrolyte drinks. Make an appointment at Dr. Ralph or Dr. Alberts at the [facility] office for follow-up. It is important that you leave the Mason catheter in to drain an over distended bladder for 1-2 weeks at minimum. This antibiotic should help any urinary issue and hopefully clear up your prostate as well. You can use ibuprofen 600-800 mg every 8 hours with plenty of water for pain. I have started you on Flomax which will hopefully reduce the size of your prostate so your Mason catheter removal will be more successful. *What to do: *Please continue to take your regular medications as directed. [ x] New medication prescriptions sent to your pharmacy: [[facility] ] [ ] New medication written as a paper prescription [ ] No new medications given *Please follow up with your primary care provider in 2-3 days, call for an appointment. Let them know you were seen in the Emergency Department and that we asked that you be seen for follow-up. We will electronically transmit a record of today's note if your PCP is in our system *If you do not have a primary care provider please contact [phone] to establish care with one of the [facility] primary care providers. *Return to Emergency Department if you should have any new, worsening, or concerning symptoms, such as [fever greater than 101F, chills, worsening pain, persistent vomiting or other bothersome symptoms]. Prescriptions: New tamsulosin [Flomax] 0.4 mg capsule 0.4 mg PO BEDTIME Qty: 20 0RF amoxicillin-pot clavulanate 875-125 mg tablet 1 tab PO BID 10 Days Qty: 20 0RF hydrocodone-acetaminophen 10-300 mg tablet 1 tab PO BID PRN (Reason: pain) Qty: 14 0RF hydrocodone-acetaminophen 5-325 mg tablet 1 tab PO BID Qty: 20 0RF Referrals: [facility] [Provider Group] Richelle Ralph MD [Physician] - Keri Fallon MD [Primary Care Provider] - Visit Report Forms: Patient Portal/API <Ashwini Chi DO - Last Filed: 05/01/22 19:37> Cosign ED Attending Jfature Attestation: I was immediately available in the department for consultation. Documentation has been reviewed. Case discussed length, labs, imaging and urinalysis reviewed. Discussed current plan discussed observation versus outpatient follow-up based on patient's comfort level.
[2022-05-01] MEDS: HYDROMORPHONE 0.5 MG INJ IV ×2 (14:48→16:28)
[2022-05-01 14:58] LABS: Add Manual Diff / Slide Review NO; Basophils Absolute Auto 0 /uL (0-100); Basophils Percent Auto 0.3 % (0-2); Eosinophils Absolute Auto 100 /uL (0-450); Eosinophils Percent Auto 0.7 % (2-4); Hematocrit 29.4 % (41-53); Hemoglobin 10.3 g/dL (13.5-17.5); Lymphocytes Absolute Auto 1000 /uL (1100-4500); Lymphocytes Percent Auto 8.4 % (25-40); Mean Corpuscular HGB Conc 35.1 % (30-36); Mean Corpuscular Hemoglobin 30.2 PG (26-34); Mean Corpuscular Volume 85.9 fL (80-100); Monocytes Absolute Auto 1200 /uL (0-900); Monocytes Percent Auto 9.9 % (3-14); Neutrophils Absolute Auto 9700 /uL (1500-7000); Neutrophils Percent Auto 80.7 % (50-75); Platelet Count 166 X10^3/uL (150-400); Red Blood Cell Count 3.42 X10^6/uL (4.5-5.9); Red Cell Distribution Width 13.1 % (11.6-14.8)
[2022-05-01 15:01] LABS: Lactate (Lactic Acid) 1.1 mmol/L (0.7-2.1)
[2022-05-01 15:04] LABS: Alanine Aminotransferase 15 IU/L (<50); Albumin 3.9 g/dL (3.5-5.0); Albumin Globulin Ratio 1.1 (1.0-2.8); Alkaline Phosphatase 92 U/L (38-126); Aspartate Aminotransferase 20 IU/L (17-59); BUN Creatinine Ratio 19.9 (6-22); Bilirubin Total 0.3 mg/dL (0.2-1.3); Blood Urea Nitrogen 27 mg/dL (9-20); Calcium 8.6 mg/dL (8.4-10.2); Carbon Dioxide 24 mmol/L (22-32); Chloride 95 mmol/L (98-107); Estimated Glomerular Filt Rate 57 mL/min (>60); Globulin 3.4 g/dL (1.7-4.1); Glucose 134 mg/dL (80-110); HEMOLYSIS < 15 (0-50); Potassium 4.2 mmol/L (3.4-5.1); Sodium 130 mmol/L (137-145); Total Protein 7.3 g/dL (6.3-8.2)
[2022-05-01 15:06] LABS: Lipase 54 U/L (23-300); Magnesium 2.2 mg/dL (1.6-2.3)
[2022-05-01 15:27] LABS: C-Reactive Protein Quant 16.5 mg/dL (<1.0)
[2022-05-01 15:46] LABS: Bacteria Urine None Seen; Culture Indicated Urine Cult Not Indicated; RBC Urine None Seen (0-5/HPF); Urine Comments Microscopic Normal; WBC Urine None Seen (0-5/HPF)
[2022-05-01 15:50] LABS: Hemoglobin A1C% w Est Avg Glu 5.7 % (4.0-6.0)
[2022-05-01] MEDS: cefTRIAXone 2,000 MG in SODIUM CHLORIDE 0.9% 100 ML 200 MG IV (16:14)
[2022-05-01] MEDS: metroNIDAZOLE 500 MG/100 ML PIGGYBACK 100 MG IV (17:17)
== END 2022-05-01 19:11 | disposition home or self-care (01) ==
PROVIDERS: Emergency Provider Nurse Practitioner Critical Care Medicine; PCP Internal Medicine
DX: K52.9 Noninfective gastroenteritis and colitis, unspecified (principal); R33.9 Retention of urine, unspecified; E87.1 Hypo-osmolality and hyponatremia; R79.89 Other specified abnormal findings of blood chemistry; Z90.49 Acquired absence of other specified parts of digestive tract; R30.0 Dysuria
CPT/HCPCS: 36415; 51798; 74177; 80053; 81015; 83036; 83605; 83690; 83735; 85025; 86140; 87077; 87086; 87186; 96361; 96365; 96366; 96367; 96375; 96376; 99284; J0696; J1170; J1885; Q9967

== ENCOUNTER 2022-05-02 13:17 | Emergency (ER) | payer OTHER, SELFPAY ==
[2022-05-02 13:36] VITALS: BP 130/61; PULSE 72; RESP 16; TEMP 36.5; O2SAT 99; BMI 29.5
== END 2022-05-02 15:51 | disposition left against medical advice (07) ==
PROVIDERS: Emergency Provider Family Medicine Addiction Medicine; PCP Internal Medicine
DX: R31.9 Hematuria, unspecified (principal); R51.9 Headache, unspecified
CPT/HCPCS: 99281

== ENCOUNTER 2023-02-19 10:20 | Emergency (ER) | payer OTHER, MEDICAID, SELFPAY ==
[2023-02-19 10:46] VITALS: BP 169/72; PULSE 65; RESP 14; TEMP 36.5; O2SAT 97; BMI 31.4
--- NOTE | 2023-02-19 10:56 | DI.RAD.S_ITS ---
PROCEDURE: XR TOE LT MIN 2V INDICATIONS: dark spot on top of L 2nd toe. Diabetic. TECHNIQUE: 3 views of the left 2nd toe(s) acquired. COMPARISON: None. FINDINGS: Bones: No acute fractures or dislocations. No suspicious bony lesions. Hallux valgus deformity of the left great toe with moderate degenerative changes at the 1st metatarsophalangeal joint. No osseous erosions. Soft tissues: No suspicious soft tissue densities. No suspicious soft tissue calcifications. IMPRESSION: Left foot without acute fracture. No suspicious osseous erosions. Hallux valgus deformity of the left great toe with associated 1st metatarsophalangeal joint degenerative change and overlying bunion formation. Dictated by: Jrerod Mello M.D. on 02/19/2023 at 12:12 Approved by: Jerrod Mello M.D. on 02/19/2023 at 12:14
--- NOTE | 2023-02-19 10:56 | DI.RAD.S_ITS ---
PROCEDURE: XR CHEST 1V INDICATIONS: chest pain TECHNIQUE: One view of the chest was acquired. COMPARISON: None. FINDINGS: Surgical changes and devices: None. Lungs and pleura: Lungs are clear. No pleural effusions or pneumothorax. Mediastinum: Mediastinal contours appear normal. Heart size is normal. Bones and chest wall: No suspicious bony lesions. Overlying soft tissues appear unremarkable. IMPRESSION: No acute cardiopulmonary abnormalities or focal airspace disease. Dictated by: Jerrod Mello M.D. on 02/19/2023 at 12:09 Approved by: Jerrod Mello M.D. on 02/19/2023 at 12:10
[2023-02-19 11:24] LABS: Add Manual Diff / Slide Review NO; Basophils Absolute Auto 0 /uL (0-100); Basophils Percent Auto 0.7 % (0-2); Eosinophils Absolute Auto 100 /uL (0-450); Eosinophils Percent Auto 1.3 % (2-4); Hematocrit 33.2 % (41-53); Lymphocytes Absolute Auto 1100 /uL (1100-4500); Lymphocytes Percent Auto 17.8 % (25-40); Mean Corpuscular Volume 86.1 fL (80-100); Monocytes Absolute Auto 600 /uL (0-900); Monocytes Percent Auto 9.5 % (3-14); Neutrophils Absolute Auto 4500 /uL (1500-7000); Neutrophils Percent Auto 70.7 % (50-75); Platelet Count 128 X10^3/uL (150-400); Red Blood Cell Count 3.86 X10^6/uL (4.5-5.9); Red Cell Distribution Width 13.4 % (11.6-14.8); White Blood Cell Count 6.4 X10^3/uL (4.5-11.0)
[2023-02-19 11:32] LABS: INR 0.9 (0.9-1.3); Prothrombin Time 10.2 SECONDS (10.1-12.7)
[2023-02-19 11:35] LABS: PTT Partial Thromboplastin Tim 28 SECONDS (26-36)
[2023-02-19 11:36] LABS: Alanine Aminotransferase 30 IU/L (<50); Albumin 3.9 g/dL (3.5-5.0); Albumin Globulin Ratio 1.3 (1.0-2.8); Alkaline Phosphatase 66 U/L (38-126); Aspartate Aminotransferase 27 IU/L (17-59); BUN Creatinine Ratio 19.9 (6-22); Bilirubin Total 0.3 mg/dL (0.2-1.3); Blood Urea Nitrogen 33 mg/dL (9-20); Calcium 9.2 mg/dL (8.4-10.2); Carbon Dioxide 26 mmol/L (22-32); Chloride 103 mmol/L (98-107); Creatine Kinase 63 U/L (55-170); Estimated Glomerular Filt Rate 44 mL/min (>60); Globulin 2.9 g/dL (1.7-4.1); Glucose 214 mg/dL (80-110); HEMOLYSIS < 15 (0-50); Lipase 138 U/L (23-300); Magnesium 2.1 mg/dL (1.6-2.3); Potassium 4.3 mmol/L (3.4-5.1); Sodium 136 mmol/L (137-145); Total Protein 6.8 g/dL (6.3-8.2)
[2023-02-19 11:47] LABS: NT-proBNP (BNP-Adult 18+) 704 pg/mL (<125); Troponin I < 0.012 ng/mL (0.01-0.034)
[2023-02-19 15:14] VITALS: PULSE 63; O2SAT 97
[2023-02-19 15:16] VITALS: BP 174/74; PULSE 57; O2SAT 98
--- NOTE | 2023-02-19 15:24 | ED_ITS ---
HPI - Extremity Problem General Chief complaint: Extremity Problem,Nontraumatic Stated complaint: L/ leg swelling, Black nany on 2 toe Time Seen by Provider: 02/19/23 13:03 Source: patient Mode of arrival: Ambulatory Limitations: no limitations History of Present Illness HPI Narrative: This is a 67-year-old male with history of cardiac stents, right lower extremity stent on aspirin 81 mg and Plavix daily, hypertension, diabetes with neuropathy, dyslipidemia and chronic tobacco use. Patient states he is noticed his LEs leg has been more swollen and there is a black spot on his toe. Patient states he has not appreciated swelling on his right leg as much. He denies any pain he states he is neuropathies who does not really feel much of anything. He states he wears his shoes all of the time. He is does not recall any trauma or injuries. He noticed a spot and the swelling Sunday morning and it has been slowly getting a little bit bigger. He denies fevers or chills. No pain. No chest pain he had little bit of orthopnea which he states got better. He has not had any other shortness of breath. No fevers or chills, no cold cough or congestion. No nausea or vomiting, no diarrhea, no issues with bowel movements. He had 1 skin infection in the past that took some time to heal but has not had chronic or persistent skin infections. Patient states takes his medications regularly. He did have a stent in his right lower extremity as well as right cardiac stent. No known drug allergies. Does use tobacco daily, no alcohol, occasional THC but no other illicit. Dr. Keri fallon is his primary care. His cardiology is through [facility]. Patient's vascular care is Dr. Hdez in [place]. Related Data Previous Rx's Medication Instructions Recorded hydrocodone 10 mg-acetaminophen 1 tab PO BID PRN pain #14 tabs 05/01/22 300 mg tablet hydrocodone 5 mg-acetaminophen 325 1 tab PO BID #20 tabs 05/01/22 mg tablet tamsulosin 0.4 mg capsule (Flomax) 0.4 mg PO BEDTIME #20 caps 05/01/22 cephalexin 500 mg capsule 500 mg PO Q6H #20 caps 02/19/23 Allergies Allergy/AdvReac Type Severity Reaction Status Date / Time No Known Drug Allergies Allergy Verified 02/19/23 10:51 Review of Systems Review of Systems ROS Unobtainable: All systems reviewed & are unremarkable except as noted in HPI and below Patient History Social History Smoking Status: Current every day smoker Smoking Status: Current every day smoker alcohol intake frequency: holidays/special occasions only Substance Use Type: marijuana Exam Narrative Exam Narrative: GENERAL: Alert and oriented x three, male in mild distress. HEENT: Head normocephalic, atraumatic, EOMI, pupils reactive, face symmetric, moist mucous membranes NECK: Supple, full range of motion CARDIOVASCULAR: Regular rate and rhythm without murmurs, rubs or gallops. RESPIRATORY: Breath sounds equal bilaterally, no wheezes rales or rhonchi. ABDOMEN: Soft, nontender. Normoactive bowel sounds all 4 quadrants. No guarding or rebound, rigidity, no mass : No CVA tenderness EXTREMITIES: Normal range of motion, no clubbing. Neurovascularly intact. Patient has 3+ edema bilateral lower extremities. Patient has 2+ dorsalis pedis bilaterally. Cap refill less than 2 seconds in all 10 toes. Patient does have purple discoloration over the 2nd digit of the left foot. There is some slight erythema. There is no tenderness. Patient has decreased sensation to touch throughout both legs. There is no ulceration or skin breakdown. No fluctuance or fluid collection NEUROLOGICAL: Cranial nerves II through XII grossly intact. Moving all ext remities SKIN: Warm, dry, no petechiae, no rashes or lesions. Initial Vital Signs Initial Vital Signs: Vital Signs Temperature 97.7 F 02/19/23 10:46 Pulse Rate 65 02/19/23 10:46 Respiratory Rate 14 02/19/23 10:46 Blood Pressure 169/72 H 02/19/23 10:46 Pulse Oximetry 97 02/19/23 10:46 Oxygen Delivery Method Room Air 02/19/23 10:46 Course Orders Ordered: ED Orders 02/19/23 10:56 XR chest 1V Stat XR toe LT min 2V Stat EKG-12 Lead Stat 02/19/23 11:13 BNP [NT-proBNP (BNP-Adult 18+)] Stat Complete Blood Count AUTO DIFF Stat Comprehensive Metabolic Panel Stat Lipase Stat Magnesium Stat PTT Partial Thromboplastin Deepak Stat Prothrombin Time INR Stat Troponin & CK Cardiac Panel Stat Vital Signs Vital signs: Vital Signs - 8 hr 02/19/23 15:14 02/19/23 15:16 02/19/23 15:16 Pulse Rate 63 57 L Respiratory Rate Blood Pressure 174/74 H Pulse Oximetry 97 98 Oxygen Delivery Method 02/19/23 15:30 02/19/23 15:30 02/19/23 16:00 Pulse Rate 53 L Respiratory Rate Blood Pressure 162/70 H 160/70 H Pulse Oximetry 98 Oxygen Delivery Method 02/19/23 16:00 Pulse Rate 60 Respiratory Rate 16 Blood Pressure Pulse Oximetry 97 Oxygen Delivery Method Room Air MDM - Extremity (Nontraumatic) Lab Data 02/19/23 11:13 02/19/23 11:13 Labs: Lab Results 02/19/23 02/19/23 02/19/23 Range/Units 11:13 11:13 11:13 WBC 6.4 (4.5-11.0) X10^3/uL RBC 3.86 L (4.5-5.9) X10^6/uL Hgb 12.0 L (13.5-17.5) g/dL Hct 33.2 L (41-53) % MCV 86.1 (80-100) fL MCH 31.0 (26-34) PG MCHC 36.0 (30-36) % RDW 13.4 (11.6-14.8) % Plt Count 128 L (150-400) X10^3/uL Neut % (Auto) 70.7 (50-75) % Lymph % (Auto) 17.8 L (25-40) % [place] % (Auto) 9.5 (3-14) % Eos % (Auto) 1.3 L (2-4) % Baso % (Auto) 0.7 (0-2) % Neut # (Auto) 4500 (8575-5059) /uL Lymph # (Auto) 1100 (5898-5720) /uL [place] # (Auto) 600 (0-900) /uL Eos # (Auto) 100 (0-450) /uL Baso # (Auto) 0 (0-100) /uL PT 10.2 (10.1-12.7) SECONDS INR 0.9 (0.9-1.3) APTT 28 (26-36) SECONDS Sodium 136 L (137-145) mmol/L Potassium 4.3 (3.4-5.1) mmol/L Chloride 103 (98-107) mmol/L Carbon Dioxide 26 (22-32) mmol/L BUN 33 H (9-20) mg/dL Creatinine 1.66 H (0.66-1.25) mg/dL Estimated GFR 44 L (>60) mL/min BUN/Creatinine Ratio 19.9 (6-22) Glucose 214 H (80-110) mg/dL Calcium 9.2 (8.4-10.2) mg/dL Magnesium 2.1 (1.6-2.3) mg/dL Total Bilirubin 0.3 (0.2-1.3) mg/dL AST 27 (17-59) IU/L ALT 30 (<50) IU/L Alkaline Phosphatase 66 (38-126) U/L Total Creatine Kinase 63 (55-170) U/L Troponin I < 0.012 (0.01-0.034) ng/mL NT-Pro-B Natriuret Pep 704 H (<125) pg/mL Total Protein 6.8 (6.3-8.2) g/dL Albumin 3.9 (3.5-5.0) g/dL Globulin 2.9 (1.7-4.1) g/dL Albumin/Globulin Ratio 1.3 (1.0-2.8) Lipase 138 (23-300) U/L Imaging Data Extremity x-ray #1: Radiologist's Impression: Close Toe X-Ray (Signed) Jerrod Mello - 02/19/23 Chest X-Ray (Signed) Jerrod Mello - 02/19/23 Abdomen/Pelvis CT (Signed) Carey Vogel - 05/01/22 Abdomen Ultrasound (Signed) Vinny Dhaliwal - 01/04/22 Launch?[address] [address] XRay Report Signed Patient: Betito Waller MR#: [id number] : 1955 Acct:[id number] Age/Sex: 67 / M Date of Service: 02/19/23 Loc: ED Accession Number: [id number] ?? Procedure: XR toe LT min 2V Ordering Provider: Ashwini Chi D.O. PROCEDURE:? XR TOE LT MIN 2V ? INDICATIONS:? dark spot on top of L 2nd toe. Diabetic. ? TECHNIQUE:? 3 views of the left 2nd toe(s) acquired.? ? COMPARISON:? None. ? FINDINGS:? ? Bones:? No acute fractures or dislocations.? No suspicious bony lesions.? Hallux valgus deformity of the left great toe with moderate degenerative changes at the 1st metatarsophalangeal joint.? No osseous erosions. ? Soft tissues:? No suspicious soft tissue densities.? No suspicious soft tissue calcifications. ? IMPRESSION:? Left foot without acute fracture.? No suspicious osseous erosions. ? Hallux valgus deformity of the left great toe with associated 1st metatarsophalangeal joint degenerative change and overlying bunion formation. ? ? Dictated by: Jerrod Mello M.D. on 02/19/2023 at 12:12 ? ? Approved by: Jerrod Mello M.D. on 02/19/2023 at 12:14?? Chest x-ray: Radiologist's Impression: [place] [address] XRay Report Signed Patient: Betito Waller MR#: [id number] : 1955 Acct:[id number] Age/Sex: 67 / M Date of Service: 02/19/23 Loc: ED Accession Number: [id number] ?? Procedure: XR chest 1V Ordering Provider: Ashwini Chi D.O. PROCEDURE:? XR CHEST 1V ? INDICATIONS:? chest pain ? TECHNIQUE:? One view of the chest was acquired.? ? COMPARISON:? None. ? FINDINGS:? ? Surgical changes and devices:? None.? ? Lungs and pleura:? Lungs are clear.? No pleural effusions or pneumothorax.? ? Mediastinum:? Mediastinal contours appear normal.? Heart size is normal.? ? Bones and chest wall:? No suspicious bony lesions.? Overlying soft tissues appear unremarkable.? ? IMPRESSION:? No acute cardiopulmonary abnormalities or focal airspace disease. ? Dictated by: Jerrod Mello M.D. on 02/19/2023 at 12:09 ? ? Approved by: Jerrod Mello M.D. on 02/19/2023 at 12:10?? ECG Data Attestation EKG: I personally reviewed and interpreted this ECG as follows: Prior ECG tracings: not available for review Interpretation: Sinus bradycardia rate of 57 OR 182 QRS of [address]TC [address] No acute ST elevation or depression noted. No priors for comparison. MDM Narrative Medical decision making narrative: 67-year-old male presents with complaint of swelling of his lower extremity any black spot on his toe. Appears to be possibly ecchymosis but he is high-risk for infection. Quick screen of x-ray does not show any obvious fracture or osteomyelitis. Patient's labs overall show hemoglobin of 12 improved from 05/04/2022, platelets are 128. Coags are negative. Patient's creatinine is 1.66 was 1.36 in April 2022. Sodium is 136, BUN 33, glucose is 214 troponins negative BNP is 704 patient does not have prior for comparison. Patient's chest x-ray is negative. Discussed with patient he does describe a little bit of orthopnea no if not persistently. Labs are overall show an increasing creatinine from 1.3-1.6 but over 10 months. Patient is and I discussed increasing his HCTZ from 25 mg to 50 mg for several days. Prescription for oral antibiotic and close watch of his toe. He has had prior arterial issues but has good pulses, cap refill and my suspicion for arterial occlusion is low at this time. Spot appears to be more of an ecchymosis and patient states he normally wears shoes but does not feel when he hurts or injuries his feet. Discuss short term follow up with his primary care to recheck his renal function and foot as well as strict return precautions. Discharge Plan Departure Patient Disposition: Home Clinical Impression: Cellulitis of toe, Elevated serum creatinine Activity Restrictions/Additional Instructions: Follow-up with your physician for recheck. Please call to set up an appointment with Dr. Fallon for recheck of your toe as well as your renal function. The spot on your toe maybe a bruise or ecchymosis but you can start antibiotics especially if it seems to be growing in size than this is likely an infection. You do appear to have swelling of both lower extremities today I would recommend increasing your hydrochlorothiazide from 25 mg (1 tablet) to 50 mg (2 tablets) for the next 3 days. Take antibiotic until completed. Prescription sent to [facility] in [place]. Please return for new or worsening skin changes, new pain, if the dark spot on your toe opens upper continues to grow in size, increasing swelling of the lower extremities, increasing shortness of breath, chest pain or pressure, l ightheadedness or passing out or other new or concerning changes. Prescriptions: New cephalexin 500 mg capsule 500 mg PO Q6H Qty: 20 0RF No Action tamsulosin [Flomax] 0.4 mg capsule 0.4 mg PO BEDTIME Qty: 20 0RF hydrocodone-acetaminophen 10-300 mg tablet 1 tab PO BID PRN (Reason: pain) Qty: 14 0RF hydrocodone-acetaminophen 5-325 mg tablet 1 tab PO BID Qty: 20 0RF Referrals: Keri Fallon MD [Primary Care Provider] - Stand Alone Forms: Patient Portal/API
[2023-02-19 15:30] VITALS: BP 162/70; PULSE 53; O2SAT 98
[2023-02-19 16:00] VITALS: BP 160/70; PULSE 60; RESP 16; O2SAT 97
== END 2023-02-19 16:24 | disposition home or self-care (01) ==
PROVIDERS: Emergency Provider Emergency Medicine; PCP Internal Medicine
DX: L03.032 Cellulitis of left toe (principal); R74.8 Abnormal levels of other serum enzymes; R00.1 Bradycardia, unspecified; I45.10 Unspecified right bundle-branch block
CPT/HCPCS: 36415; 71045; 73660; 80053; 82550; 83690; 83735; 83880; 84484; 85025; 85610; 85730; 93005; 93010; 99284

== ENCOUNTER → 2023-06-04 10:37 | Outpatient (CLI) | payer OTHER, MEDICAID, SELFPAY | LOC: WC 10:37 | PROVIDERS: PCP Internal Medicine; Referring Provider Internal Medicine; Visit Provider Surgery | DX: S51.802A Unspecified open wound of left forearm, initial encounter (principal); E11.622 Type 2 diabetes mellitus with other skin ulcer; I10 Essential (primary) hypertension | CPT/HCPCS: 97597; 99203; 99213 ==

== ENCOUNTER → 2023-06-18 09:34 | Outpatient (CLI) | payer OTHER, MEDICAID, SELFPAY | PROVIDERS: PCP Internal Medicine; Referring Provider Internal Medicine; Visit Provider Surgery | DX: S50.812A Abrasion of left forearm, initial encounter (principal); E11.622 Type 2 diabetes mellitus with other skin ulcer | CPT/HCPCS: 99213 ==